=== PATIENT | female | born 1985 | race Caucasian/White ===

== ENCOUNTER 2016-04-05 10:29 | Outpatient (CLI) | payer OTHER ==
--- NOTE | 2016-04-05 12:56 | DIAGNOSTIC IMAGING REPORT ---
PROCEDURE: XR HYSTEROSALPINGOGRAM INDICATION: Infertility. Prior history of IUD. TECHNIQUE: Informed consent was obtained and the patient was advised of the usual risks and complications including infection, bleeding, and allergy. test is reported as negative. Limited pelvic speculum examination. Following sterile preparation of the cervix (Betadine), a 5.0 [place] hysterosalpingogram catheter advanced into the uterine cervix under direct visualization. Retention balloon was inflated. Under fluoroscopic visualization (3.1 minutes, 1578.90 mGy). 15 ml of Omnipaque 300 contrast material was infused. The patient tolerated the procedure reasonably well. The patient was discharged home in satisfactory condition with instructions to call for any untoward symptoms. COMPARISON: None. FINDINGS: 10 fluoroscopic images in AP, and bilateral oblique projections. There is moderate stenosis of the lower uterine segment (3 mm). Uterus is otherwise normal. Bilateral fallopian tubes are patent with free spillage of contrast into the peritoneal cavity. IMPRESSION: 1. There is moderate stenosis of the lower uterine segment which may be a reflection of uterine scarring. 2. Otherwise normal uterus. 3. Patent bilateral fallopian tubes. 4. Findings discussed with the patient.
== END 2016-04-05 23:00 ==
LOC: XR SRH 10:29 → LAB SRH 10:29 → XR SRH 11:00
DX: Z31.69 Encounter for other general counseling and advice on procreation (principal)
CPT/HCPCS: 81207; 83348; 90074; 90197

== ENCOUNTER → 2016-05-05 | Outpatient (CLI) | payer OTHER ==
--- NOTE | 2016-05-05 12:12 | DIAGNOSTIC IMAGING REPORT ---
PROCEDURE: US OB 1ST TRIMESTER W/TRANSVAG INDICATION: SIZE AND DATES TECHNIQUE: Echevarria scale, color, and spectral Doppler transabdominal sonographic images of the first trimester gravid uterus were obtained. COMPARISON: None. FINDINGS: TRANSABDOMINAL SCANS: The gravid uterus is anteverted in position and contains a fundal gestational sac with a moderate residual response. No perigestational hemorrhage. The cervix is closed at 4.5 cm no pole was seen at this time. A gestational sac was visible measuring 9 mm which corresponds to 5 weeks and 6 days. Yolk sac measured at 2.4 mm. Maternal ovaries appear normal with a corpus luteum cyst visualized left ovary. No free pelvic fluid. IMPRESSION: 1. Single gestational sac with gestational age of 5 weeks and 6 days and estimated due date of 12/30/2016 2. Closed cervix and no perigestational hemorrhage.
== END ==
LOC: US SRH 10:57
DX: Z34.91 Encounter for supervision of normal pregnancy, unspecified, first trimester (principal); Z3A.01 Less than 8 weeks gestation of pregnancy

== ENCOUNTER 2016-08-10 12:56 | Outpatient (CLI) | payer OTHER ==
--- NOTE | 2016-08-10 14:05 | DIAGNOSTIC IMAGING REPORT ---
PROCEDURE: US OB DETAILED ANATOMIC INDICATION: ANATOMY TECHNIQUE: Echevarria scale, color, and spectral Doppler images of the second trimester gravid uterus were obtained. COMPARISON: OB ultrasound 05/05/2016 FINDINGS: A single living intrauterine is in vertex presentation. There is regular cardiac activity at a rate of 152 beats per minute. The placenta is anterior and away from the internal cervical os. The cervix is closed measuring approximately 3.1 cm in length. The amniotic fluid volume is subjectively normal. Biparietal diameter 4.5 cm of 19 weeks and 4-day Head circumference 16.9 cm of 19 weeks 4 days Abdominal circumference 13.9 cm of 19 weeks and 2-day Femur length 3.0 cm of 19 weeks and 3 days Estimated weight 289 g Composite gestational age 19 weeks and 3 days, MANOLO 01/01/2017 Limited study, only able to visualize the diaphragm, fluid-filled stomach, kidneys, abdomen, urinary bladder, and genitals. A three-vessel umbilical cord, normal and placental cord insertion sites were seen. IMPRESSION: 1. Single living intrauterine with a composite gestational age of 9 weeks and 3 days, MANOLO 01/01/2017 2. Limited anatomy. Recommend repeat study in 2 weeks.
== END 2016-08-10 23:00 ==
LOC: US SRH 12:56
DX: Z34.91 Encounter for supervision of normal pregnancy, unspecified, first trimester (principal); Z3A.09 9 weeks gestation of pregnancy